=== PATIENT | female | born 1990 | race Caucasian/White ===

== ENCOUNTER 2020-02-24 20:03 | Emergency (ER) | payer OTHER ==
[2020-02-24 20:10] VITALS: TEMP 97.8
[2020-02-24] MEDS ORDERED: diphenhydrAMINE 50 MG/ML 1 ML VIAL IM STA (20:19)
--- NOTE | 2020-02-24 20:24 | ED ---
General Adult HPI - General Chief complaint: Skin/Abscess/Foreign Body Stated complaint: Allergic Reaction Time Seen by Provider: 02/24/20 20:06 Source: patient, RN notes reviewed Mode of arrival: ambulatory Limitations: no limitations - History of Present Illness Initial comments: Patient is a pleasant 29-year-old female presenting to the emergency department with concern for bug bites. [place]. Patient has had similar symptoms previously with going to this region. Patient states somebody told her she was bit by chiggers. Patient has itching diffusely. Patient does have an area larger on her left bottom with some drainage. No swelling of the tongue or lips or throat. No d yspnea. Patient complains of itching. - Related Data Previous Rx's Medication Instructions Recorded Cephalexin [Keflex] 500 mg PO QID #28 cap 02/24/20 hydrOXYzine HCL [Atarax] 25 mg PO QID PRN #20 tab 02/24/20 Allergies Allergy/AdvReac Type Severity Reaction Status Date / Time No Known Allergies Allergy Verified 02/24/20 20:10 Review of Systems ROS Statement: Those systems with pertinent positive or pertinent negative responses have been documented in the HPI. ROS Other: All systems not noted in ROS Statement are negative. Constitutional: Denies: fever Eyes: Denies: eye pain ENT: Denies: ear pain Respiratory: Denies: cough Cardiovascular: Denies: chest pain Endocrine: Denies: fatigue Gastrointestinal: Denies: abdominal pain Genitourinary: Denies: dysuria Musculoskeletal: Denies: back pain Skin: Reports: as per HPI, rash, pruritus Neurological: Denies: weakness Past Medical History Past Medical History: No Reported History History of Any Multi-Drug Resistant Organisms: None Reported Past Surgical History: Appendectomy Past Psychological History: No Psychological Hx Reported Smoking Status: Never smoker Past Alcohol Use History: Rare Past Drug Use History: None Reported General Exam Limitations: no limitations General appearance: alert, in no apparent distress Head exam: Present: normocephalic Eye exam: Present: normal appearance ENT exam: Present: normal oropharynx Neck exam: Present: normal inspection Respiratory exam: Present: normal lung sounds bilaterally Cardiovascular Exam: Present: regular rate, normal rhythm GI/Abdominal exam: Present: soft. Absent: tenderness Extremities exam: Present: normal inspection Neurological exam: Present: alert Psychiatric exam: Present: normal affect, normal mood Skin exam: Present: rash (Patient has diffuse erythematous areas of her body mostly under 1 cm. There is one on the left buttocks approximately 3 cm with mild clear drainage and mild tenderness.) Course Vital Signs 02/24/20 20:06 Temperature 97.8 F Pulse Rate 104 H Respiratory 20 Rate Blood Pressure 151/91 O2 Sat by Pulse 99 Oximetry Medical Decision Making - Medical Decision Making Symptoms consistent with report of bug bites. There is concern for possible early infection of the left buttocks and patient will be started on antibiotics Disposition Clinical Impression: Chigger bites Disposition: HOME SELF-CARE Condition: Stable Instructions (If sedation given, give patient instructions): Insect Bite or Sting (ED) Additional Instructions: [id number] 1% hydrocortisone cream as needed to affected areas. Please follow-up with primary care physician in the next couple days for recheck. Return for difficulty breathing, swelling of the throat or tongue or lips, increased pain or discharge from areas, worsening symptoms or fevers or other concerns. Prescription sent to [facility] pharmacy in [place] Prescriptions: hydrOXYzine HCL [Atarax] 25 mg PO QID PRN #20 tab PRN Reason: Itching Cephalexin [Keflex] 500 mg PO QID #28 cap Is patient prescribed a controlled substance at d/c from ED?: No Referrals: Kady Mitchell PAC [Primary Care Provider] - 1-2 days Time of Disposition: 20:23
[2020-02-24 20:55] VITALS: BP 126/91; PULSE 83; RESP 16
== END 2020-02-24 20:55 | disposition home or self-care (01) ==
LOC: EC 20:03
DX: B88.0 Other acariasis (principal)
CPT/HCPCS: 99283; 96372; J1200